=== PATIENT | female | born 2005 | race Caucasian/White ===

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

== ENCOUNTER → 2024-03-25 08:40 | Outpatient (REF) | payer BC, MEDICAID, SELFPAY ==
--- NOTE | 2024-03-25 | DI.RAD_ITS ---
Exam(s) XR CHEST 2V PA LATERAL EXAM: XR CHEST 2V PA LATERAL CLINICAL HISTORY: cough TECHNIQUE: 2D digital imaging was performed of the chest. Two images were obtained. PA and lateral views were obtained. COMPARISON: No exams were available for comparison FINDINGS: MEDIASTINUM: Normal. HEART: Normal. PULMONARY VASCULATURE: Normal. LUNGS: Clear. PLEURAL SPACE: No pleural effusion or pneumothorax. BONE:Within normal limits for the patient's age. OTHER FINDINGS:Normal. IMPRESSION: No acute pulmonary findings. DATA REPOSITORY: RADIATION DOSE DELIVERED:
== END ==
LOC: DI 08:40
PROVIDERS: PCP Family Medicine; Visit Provider Physician Assistant Medical
DX: R05.9 Cough, unspecified (principal)
CPT/HCPCS: 71046

== ENCOUNTER 2024-08-03 12:38 | Emergency (ER) | payer BC, MEDICAID, SELFPAY ==
[2024-08-03 13:29] VITALS: BP 131/80; PULSE 69; RESP 20; TEMP 37.1; O2SAT 96
--- NOTE | 2024-08-03 13:38 | ED.GENADUL_ITS ---
Discharge Plan Disposition Patient Disposition: Home Condition: Stable Discharge Details Clinical Impression: Abdominal pain of unknown cause Primary Care Provider: Stephan Rivera ED Provider: Mikie Pike Home Meds and New Rx's Prescriptions: Continued lisdexamfetamine [Vyvanse] 20 mg capsule 30 mg PO DAILY Kyleena 17.5 mcg/24 hrs (5 yrs) 19.5 mg intrauterine device 1 device IY ONCE Rx Instructions: as a single dose loratadine [Allergy Relief (loratadine)] 10 mg tablet 10 mg PO DAILY fluticasone propionate [Flovent HFA] 110 mcg/actuation HFA aerosol inhaler 1 puff inhalation BID Qty: 12 0RF albuterol sulfate [ProAir HFA] 90 mcg/actuation HFA aerosol inhaler 2 puff inhalation Q6H PRN Discharge Instructions Instructions: Abdominal Pain, Adult ED Additional Instructions: You were seen in the emergency department for your abdominal pain of unknown cause, there is no evidence of any gallbladder or pancreatitis problem there is no evidence of any kidney stone or kidney problem, no evidence of any ovarian cyst, your labs are benign showing no sign of infection, it would be highly unlikely to have any perforated organ or organ problem in the abdomen including appendicitis at this time-you may have irritable bowel syndrome or a stomach bug that is passing through you but I do not suspect any emergent pathology, please follow-up with your primary care provider please return to the emergency department for any emergent concerns including worsening with fever, bowel and urine changes, severe increase in pain. Referrals: Stephan Rivera [Primary Care Provider] - Discharge Data Discharge Date/Time-TO BE ENTERED AT DEPARTURE: 08/03/24 15:59 HPI General Date/Time Provider Initiated Documentation: 08/03/24 12:58 . HPI Narrative: 18 year-old female presents to ED today by POV/ambulating with a chief complaint of lower abdominal pain, intermittent with onset over a week ago. Patient concerned with diverticulitis vs ovarian cysts. Quality described as intermittent central lower abdominal pain, no radiation to bowel/urinary changes, black/bloody stools, vaginal complaints, vomiting, fever. Severity is described as 10/10, but at different points has no pain throughout visit. Palliating factors include nothing specific. Provoking factors include nothing specific. Patient had a negative covid test at urgent care. Patient not anticoagulated. Related Data Home Medications ?Medication ?Instructions ?Recorded ?Confirmed levonorgestrel 17.5 mcg/24 hr (up 1 device intrauterine ONCE 05/18/20 08/03/24 to 5 yrs) 19.5mg intrauterine device (Kyleena) loratadine 10 mg tablet (Allergy 10 mg PO DAILY 11/01/20 08/03/24 Relief (loratadine)) albuterol sulfate 90 mcg/actuation 2 puff inhalation Q6H PRN 10/18/21 08/03/24 aerosol inhaler (ProAir HFA) lisdexamfetamine 20 mg capsule 30 mg PO DAILY 08/28/22 08/03/24 (Vyvanse) fluticasone propionate 110 1 puff inhalation BID #12 grams 11/26/22 08/03/24 mcg/actuation HFA aerosol inhaler (Flovent HFA) Previous Rx's ?Medication ?Instructions ?Recorded fluticasone propionate 110 1 puff inhalation BID #12 grams 11/26/22 mcg/actuation HFA aerosol inhaler (Flovent HFA) Allergies Allergy/AdvReac Type Severity Reaction Status Date / Time No Known Allergies Allergy Unverified 08/03/24 13:34 General Stated Complaint: Abd Prob KAUR: 3 Review of Systems All systems reviewed & are unremarkable except as noted in HPI and below Exam Narrative Exam Narrative: GENERAL APPEARANCE: Well-nourished, non-toxic, awake and alert, atraumatic, no acute distress. SKIN: Warm, pink, dry, intact, without rashes/lesions/ulcerations. HEAD: Normocephalic, atraumatic, normal hair distribution for gender/age. EYES: Normal conjunctiva, no exudates on lids/lashes. ENT: Nares patent, no circumoral cyanosis, no facial swelling NECK: Supple, trachea midline, painless cervical ROM. LUNGS/CHEST: Lungs CTA bilaterally-no rhonchi/rales/wheezes diffusely, non- labored respirations, normal A/P diameter, symmetrical expansion, no chest wall deformity HEART (CV/PV): Regular rate and rhythm without murmur, no peripheral edema, no JVD. ABDOMEN: Soft, non-distended, no guarding, suprapubic discomfort with palpation, right upper quadrant tenderness without overt Cottrell sign, no CVA tenderness bilaterally, no Rovsing's, no McBurney's point tenderness. MSK: Normal ROM, no swelling/deformity to bilateral UEs or LEs, moving all extremities without weakness, no cyanosis, spine midline without tenderness, normal curvature. NEURO: Mental Status AAOx4 - alert to person, place, time, events No facial droop, no forehead involvement. Motor: No focal weakness - strength 5/5 in bilateral UEs and LEs, proximal and distal, symmetric. Sensory: sensation intact to light touch globally. Gait normal: patient ambulated without ataxia into ED room. PSYCH: euthymic, cooperative, pleasant, appropriate speech Course Vital Signs Vital signs: Vital Signs Temperature 37.1 C 08/03/24 13:29 Pulse 69 08/03/24 13:29 Respiratory Rate 20 08/03/24 13:29 Blood Pressure 131/80 08/03/24 13:29 Pulse Oximetry 96 08/03/24 13:29 Temperature 37.1 C 08/03/24 13:29 Pulse 69 08/03/24 13:29 Respiratory Rate 20 08/03/24 13:29 Respiratory Effort Normal 08/03/24 13:32 Blood Pressure 131/80 08/03/24 13:29 Pulse Oximetry 96 08/03/24 13:29 Oxygen Delivery Method Room Air 08/03/24 13:29 Oxygen Flow Rate 0 08/03/24 13:29 Pain Level 3 08/03/24 13:29 Medical Decision Making This dictation utilizes [id number] dictation software and may contain unedited grammatical errors. 18 year-old female presents to ED today by POV/ambulating with a chief complaint of lower abdominal pain, intermittent with onset over a week ago. Patient concerned with diverticulitis vs ovarian cysts. Quality described as intermittent central lower abdominal pain, no radiation to bowel/urinary changes, black/bloody stools, vaginal complaints, vomiting, fever. Severity is described as 10/10, but at different points has no pain throughout visit. Palliating factors include nothing specific. Provoking factors include nothing specific. Patient had a negative covid test at urgent care. Patients' medical history: Anxiety. Family and social history: Noncontributory. Pertinent exam findings / vital signs include lower abdominal tenderness, no tenderness at McBurney's point, states more focal in the right upper quadrant as well as suprapubic areas, no CVA tenderness bilaterally, stable vitals, nontoxic presentation, benign cardiopulmonary status, neuro intact. Differential / pathologies of concern include abdominal pain, ovarian cysts, biliary tree pathology, renal pathology, UTI, IBS, endometriosis. Diagnostic studies of: -CBC, CMP, lipase, UA, magnesium, lactate, ultrasound right upper q uadrant/renal/pelvic. -CBC is completely benign with no actionable abnormality whatsoever -Lactate negative do not suspect any septic pathology or perforated viscus, mesenteric ischemia -CMP is without actionable abnormality, normal kidney function, normal liver enzymes, no electrolyte abnormality -Lipase within normal limits -Magnesium within normal limits -UA without any signs of infection -Ultrasounds of the right upper quadrant and renal system showed no acute abnormality, pelvic ultrasound shows no ovarian pathology Interventions of: -1g PO Tylenol for pain. ED Course/Assessment/Plan: 18-year-old female presents with vague abdominal pain for the past week, has 0 laboratory abnormalities indicating this would unlikely be any infectious etiology at this time, no elevated lactate indicating no mesenteric ischemia, the area of her pain is right upper quadrant and suprapubic areas, ultrasound showed no gallstones, lipase is normal indicating no pancreatitis, kidney functions normal there is no evidence of ureteral stone on renal ultrasound and no evidence of ovarian cyst or tubo-ovarian abscess or other pathology on ultrasound of the pelvic area, she may need follow-up with gastroenterology versus [employer] for possible IBS versus endometriosis. Otherwise she appears to be a healthy 18-year-old female, she did request some pain medicine and was given Tylenol, I do not think she needs any opiate pain medication with benign workup. Findings not consistent with perforated viscus, tubo-ovarian abscess, infectious colitis, mesenteric ischemia, electrolyte abnormality, UTI or PID. Disposition of abdominal pain of unknown cause. Patient verbalized understanding of the plan and return to ED criteria and engaged in shared decision making. Medical Records Medical records reviewed: Yes I reviewed the patient's medical records. Imaging Data Radiologic Study: Attestation: I personally reviewed and interpreted this imaging study as follows: Imaging: Ultrasound Radiologist's impression: EXAM: US ABDOMEN RENAL CLINICAL HISTORY: RUQ renal U/S TECHNIQUE: Ultrasound abdomen performed using standard protocol. COMPARISON: No exams were available for comparison FINDINGS: ABDOMINAL AORTA AND IVC: Visualized portions normal caliber. PANCREAS: Normal where visualized. LIVER: Normal. Hepatopetal flow in the Portal Vein. The liver measures 15.6 cm long. No hepatic mass is present. GALLBLADDER: No evidence of cholelithiasis. No evidence of wall thickening. No pericholecystic fluid identified. BILIARY SYSTEM: Common bile duct measures < 7 mm. No intrahepatic biliary ductal dilation. COTTRELL'S SIGN: Negative. SPLEEN: Not enlarged. ASCITES: None seen. Renal size in cm: Right: 11.2. Left: 10.8. Echogenicity: Normal. Hydronephrosis: No. Cyst or mass: No. Nephrolithiasis: No. Other findings: None. Bladder:The bladder was not adequately prepped for this examination and thus incompletely distended. No gross abnormalities identified. Ureteral jets: Right: Not visualized on this examination. Left: Not visualized on this examination. Prevoid vol:72 cc Renal color flow: Symmetric and within normal limits. IMPRESSION: Normal sonographic appearance of the upper abdomen, kidneys and bladder. Radiologic Study #2: Attestation: I personally reviewed and interpreted this imaging study as follows: Imaging: Ultrasound Radiologist's impression: EXAM: US PELVIS CLINICAL HISTORY: ?ovarian cysts. TECHNIQUE: Transabdominal pelvic ultrasound was performed using standard protocol. COMPARISON: No exams were available for comparison FINDINGS: UTERUS: Position: Anteverted. Size: 7.5 long by 3.6 AP by 6.2 transverse cm Endometrium: 0.3 cm. Normal for patient's menstrual status. There is an IUD which is in good position. Myometrium: Unremarkable. Cervix: Unremarkable. OVARIES: Right: 1.8 x 1.8 x 0.9 cm Cyst or mass: No suspicious cystic or solid masses. Left: 2.2 x 2.1 x 1.2 cm Cyst or mass: No suspicious cystic or solid masses. DOPPLER: Color: Symmetric and uniform flow to both ovaries. CUL-DE-SAC: Free fluid: None. Other: None. IMPRESSION: 1. Normal-appearing uterus with endometrial stripe within normal limits. 2. The patient's IUD is in good position. 3. Unremarkable bilateral ovaries. Lab Data Lab results reviewed: Yes I reviewed the patient's lab results. Labs: Laboratory Tests Range/Units 08/03/24 08/03/24 13:40 15:00 WBC (4.4-10.8) 10^3/uL 8.02 RBC (3.93-5.22) 10^6/uL 4.88 Hgb (11.2-15.7) g/dL 13.6 Hct (36.0-46.0) % 41.2 MCV (80-95) fL 84 MCH (27.0-33.0) pg 27.9 MCHC (32.0-36.0) % 33.0 RDW (11.7-14.6) % 12.3 Plt Count (130-400) 10^3/uL 284 MPV (8.0-11.0) fL 8.8 Immature Gran % % 0.2 Neutrophils % % 63.6 Lymphocytes % % 22.1 Monocytes % % 6.7 Eosinophils % % 6.5 Basophils % % 0.9 Nucleated RBC % (0.0-0.3) % 0.0 Absolute Neutrophils (1.2-6.7) 10^3/uL 5.10 Absolute Lymphocytes (1.2-3.4) 10^3/uL 1.77 Absolute Monocytes (0.1-0.8) 10^3/uL 0.54 Absolute Eosinophils (0.0-0.7) 10^3/uL 0.52 Absolute Basophils (0.0-0.2) 10^3/uL 0.07 VBG Lactate (0.6-1.4) mmol/L 0.4 L Sodium (136-145) mmol/L 144 Potassium (3.5-5.1) mmol/L 3.8 Chloride (98-107) mmol/L 107 Carbon Dioxide (21.0-32.0) mmol/L 25.9 Anion Gap (3-11) mmol/L 11.1 H BUN (7-18) mg/dL 10 Creatinine (0.55-1.02) mg/dL 0.8 Est GFR (CKD-EPI 2020) (mL/min/1.73m2) 108.78 Glucose (74-106) mg/dL 90 Calcium (8.5-10.1) mg/dL 9.1 Magnesium (1.8-2.4) mg/dL 2.1 Total Bilirubin (0.2-1.0) mg/dL 0.56 AST (15-37) U/L 15 ALT (14-59) U/L 14 Alkaline Phosphatase (46-116) U/L 98 Total Protein (6.4-8.2) g/dL 7.7 Albumin (3.4-5.0) g/dL 4.5 Lipase (16-77) U/L 26 Urine Color (Yellow) Yellow Urine Clarity (Clear) Sl Cloudy Urine pH (5-8) 8.0 Ur Specific [place] (1.005-1.025) 1.020 Urine Protein (Neg-Trace) mg/dL Negative Urine Ketones (Negative) mg/dL Negative Urine Blood (Negative) Trace-intact H Urine Nitrite (Negative) Negative Urine Bilirubin (Negative) Negative Urine Urobilinogen (Up to 0.2) mg/dL 0.2 Ur Leukocyte Esterase (Negative) Negative Urine RBC (0-2) HPF 0-2 Urine WBC (0-5) HPF Negative Ur Epithelial Cells (Negative) HPF Many Urine Crystals (Negative) HPF Negative Urine Bacteria (Negative) HPF Negative Urine Casts (Negative) LPF Negative Urine Mucus (Negative) Negative Ur Culture Indicated? No Urine Glucose (Negative) mg/dL Negative Quality:SDOH Health Related Social Needs: No Data to Display PFSH All Active Problems (Updated 08/03/24 @ 15:32 by WILFRIDO Cunha) Abdominal pain of unknown cause (Acute) Synovitis of right shoulder (Acute) Instability of right shoulder joint (Acute) Pain of ulnar side of wrist (Acute) Left scapholunate ligament tear (Acute) Mood disorder (Acute) Asthma, moderate persistent (Acute) Left wrist sprain (Acute 09/30/20) IUD surveillance (Acute 04/06/20) Broderickena Suicidal ideation (Acute) Anxiety and depression (Acute) Medical History Anemia Anxiety Buckle fracture of left wrist Wheezing Family History Mother Asthma Father Essential hypertension Hyperlipidemia Mental disorder anxiety Sister Asthma eia Social History Smoking/Tobacco Use Status: Never Smoking risk assessment performed?: Yes Alcohol Intake: never Substance use type: does not use Current gender identity: female Do you feel safe at home: Yes Do you feel safe in your relationship?: Yes Female Reproductive History Menstrual Age of Menarche: 10 Duration of menses: 6-7 days control method: none and progestin IUCD History History 0 Para Hx # Term Pregnancies Multiple births Hx # Pregnancies Ectopic pregnancies AB induced Hx Number of Living Children AB spontaneous
[2024-08-03 14:06] LABS: Bilirubin Negative (Negative); Blood Trace-intact (Negative); Clarity Sl Cloudy (Clear); Glucose Negative (Negative); Ketones Negative (Negative); Leukocyte Esterase Negative (Negative); Nitrite Negative (Negative); Urobilinogen 0.2 mg/dL (Up to 0.2)
--- NOTE | 2024-08-03 14:20 | DI.US_ITS ---
Exam(s) US ABDOMEN RENAL EXAM: US ABDOMEN RENAL CLINICAL HISTORY: RUQ renal U/S TECHNIQUE: Ultrasound abdomen performed using standard protocol. COMPARISON: No exams were available for comparison FINDINGS: ABDOMINAL AORTA AND IVC: Visualized portions normal caliber. PANCREAS: Normal where visualized. LIVER: Normal. Hepatopetal flow in the Portal Vein. The liver measures 15.6 cm long. No hepatic mass is present. GALLBLADDER: No evidence of cholelithiasis. No evidence of wall thickening. No pericholecystic fluid identified. BILIARY SYSTEM: Common bile duct measures < 7 mm. No intrahepatic biliary ductal dilation. BOSTON'S SIGN: Negative. SPLEEN: Not enlarged. ASCITES: None seen. Renal size in cm: Right: 11.2. Left: 10.8. Echogenicity: Normal. Hydronephrosis: No. Cyst or mass: No. Nephrolithiasis: No. Other findings: None. Bladder:The bladder was not adequately prepped for this examination and thus incompletely distended. No gross abnormalities identified. Ureteral jets: Right: Not visualized on this examination. Left: Not visualized on this examination. Prevoid vol:72 cc Renal color flow: Symmetric and within normal limits. IMPRESSION: Normal sonographic appearance of the upper abdomen, kidneys and bladder. DATA REPOSITORY:
[2024-08-03 14:22] LABS: Bacteria Negative HPF (Negative); C & S Indicated? No; Casts Negative LPF (Negative); Crystals Negative HPF (Negative); Epithelial Cells Many HPF (Negative); Mucus Negative (Negative); RBC 0-2 HPF (0-2); WBC Negative HPF (0-5)
--- NOTE | 2024-08-03 14:45 | DI.US_ITS ---
Exam(s) US PELVIS EXAM: US PELVIS CLINICAL HISTORY: ?ovarian cysts. TECHNIQUE: Transabdominal pelvic ultrasound was performed using standard protocol. COMPARISON: No exams were available for comparison FINDINGS: UTERUS: Position: Anteverted. Size: 7.5 long by 3.6 AP by 6.2 transverse cm Endometrium: 0.3 cm. Normal for patient's menstrual status. There is an IUD which is in good position . Myometrium: Unremarkable. Cervix: Unremarkable. OVARIES: Right: 1.8 x 1.8 x 0.9 cm Cyst or mass: No suspicious cystic or solid masses. Left: 2.2 x 2.1 x 1.2 cm Cyst or mass: No suspicious cystic or solid masses. DOPPLER: Color: Symmetric and uniform flow to both ovaries. CUL-DE-SAC: Free fluid: None. Other: None. IMPRESSION: 1. Normal-appearing uterus with endometrial stripe within normal limits. 2. The patient's IUD is in good position. 3. Unremarkable bilateral ovaries. DATA REPOSITORY:
[2024-08-03 15:03] LABS: Lactate 0.4 mmol/L (0.6-1.4)
[2024-08-03 15:04] LABS: Abs Immature Grans 0.02 10^3/uL (0.0-0.06); Absolute Basophil Count 0.07 10^3/uL (0.0-0.2); Absolute Eosinophil Count 0.52 10^3/uL (0.0-0.7); Absolute Lymphocyte Count 1.77 10^3/uL (1.2-3.4); Absolute Monocyte Count 0.54 10^3/uL (0.1-0.8); Basophils % 0.9 %; Eosinophils % 6.5 %; HCT 41.2 % (36.0-46.0); HGB 13.6 g/dL (11.2-15.7); Immature Grans % 0.2 %; Lymphocytes % 22.1 %; MCH 27.9 pg (27.0-33.0); MCV 84 fL (80-95); MPV 8.8 fL (8.0-11.0); Monocytes % 6.7 %; Neutrophils % 63.6 %; Platelet Count 284 10^3/uL (130-400); RBC 4.88 10^6/uL (3.93-5.22); RDW 12.3 % (11.7-14.6); RDW-SD 37.2 fL; WBC 8.02 10^3/uL (4.4-10.8)
[2024-08-03 15:20] LABS: ALT 14 U/L (14-59); AST 15 U/L (15-37); Albumin 4.5 g/dL (3.4-5.0); Alkaline Phosphatase 98 U/L (46-116); Anion Gap 11.1 mmol/L (3-11); BUN 10 mg/dL (7-18); Bilirubin, Total 0.56 mg/dL (0.2-1.0); CO2 25.9 mmol/L (21.0-32.0); CREATININE 0.8 mg/dL (0.55-1.02); Calcium 9.1 mg/dL (8.5-10.1); Chloride 107 mmol/L (98-107); Estimated GFR 108.78 (mL/min/1.73m2); Glucose 90 mg/dL (74-106); Lipase 26 U/L (16-77); Magnesium 2.1 mg/dL (1.8-2.4); Potassium 3.8 mmol/L (3.5-5.1); Sodium 144 mmol/L (136-145); Total Protein 7.7 g/dL (6.4-8.2)
[2024-08-03] MEDS: Acetaminophen 500 MG TAB 1000 MG PO (15:36)
[2024-08-03 15:38] VITALS: BP 132/78; BP 145/85; PULSE 62; PULSE 64; RESP 16; TEMP 36.4; TEMP 36.5; O2SAT 100
[2024-08-03] MEDS: Ketorolac 15 MG/ML VIAL IVP (15:55)
== END 2024-08-03 15:59 | disposition home or self-care (01) ==
PROVIDERS: Emergency Medicine; Emergency Provider Physician Assistant; PCP Family Medicine
DX: R10.9 Unspecified abdominal pain (principal); Z97.5 Presence of (intrauterine) contraceptive device
CPT/HCPCS: 76770; 80053; 83690; 96374; 99284; 76700; 76856; 81003; 81015; 83605; 83735; 85025; J1885

== ENCOUNTER 2024-09-21 21:29 | Outpatient (REF) | payer BC, MEDICAID, SELFPAY | END 2024-09-21 21:30 | disposition home or self-care (01) | LOC: LBN 21:29 | PROVIDERS: PCP Family Medicine; Visit Provider Nurse Practitioner Family | DX: J02.9 Acute pharyngitis, unspecified (principal) | CPT/HCPCS: 87070 ==

== ENCOUNTER 2024-09-22 08:22 | Emergency (ER) | payer BC, MEDICAID, SELFPAY ==
[2024-09-22 08:24] VITALS: BP 133/91; PULSE 88; RESP 16; TEMP 36.6; O2SAT 98
[2024-09-22 08:25] VITALS: BP 133/91; PULSE 77
--- NOTE | 2024-09-22 08:52 | DI.CT_ITS ---
Exam(s) CT NECK W EXAM: CT NECK W INDICATION: Left tonsillar swelling. COMPARISON: CT CT HEAD CERVICAL SPINE WO from 06/13/2022 TECHNIQUE: FINDINGS: VISUALIZED PARANASAL SINUSES: There is mucosal thickening in the left maxillary sinus without a fluid level therein. Other visualized paranasal sinuses are clear as are mastoid air cells. NASOPHARYNX: Unremarkable ORODENTAL: Unremarkable. OROPHARYNX: Slightly prominent tonsils bilaterally. Subtle suggestion of small 5 mm abscess in the l eft tonsil. No calcified tonsilliths evident. No airway obstruction. Uvula is midline. No evidenc e of retropharyngeal abscess. HYPOPHARYNX: Unremarkable. Valleculae and epiglottis and aryepiglottic folds appear normal. VOCAL CORDS: Unremarkable. No masses evident. Subglottic airway appears unremarkable. THYROID GLAND: Unremarkable. Normal size and no obvious nodules. SALIVARY GLANDS: Unremarkable. No significant findings in the parotid and submandibular glands. LYMPH NODES: Multiple enhancing probable reactive lymph nodes posterior to the jugular veins both alyx es the neck. OTHER: No significant vascular findings. VISUALIZED LUNG APICES: No significant findings. IMPRESSION: 1. Mildly swollen tonsils. Possible subtle 5 mm abscess in the left tonsil. 2. No evidence of retropharyngeal abscess. Discussed with ER provider RADIATION DOSE DELIVERED: 182.94mGy.cm Total DLP DATA REPOSITORY: All CT scans at this facility are submitted to the National Radiology Data Registry (NRDR) Dose Index Registry (DIR) with the [employer] ([employer]). RADIATION OPTIMIZATION: All CT scans at this facility use at least one of these dose optimization te chniques: automated exposure control; mA and/or kV adjustment per patient size (includes targeted exa ms where dose is matched to clinical indication); or iterative reconstruction.
--- NOTE | 2024-09-22 08:53 | ED.GENADUL_ITS ---
Discharge Plan Disposition Patient Disposition: Home Discharge Details Clinical Impression: Acute tonsillitis, Elevated liver enzymes Primary Care Provider: David Landaverde ED Provider: Jethro Doll Home Meds and New Rx's Prescriptions: New ondansetron 4 mg tablet,disintegrating 4 mg PO Q8H PRN (Reason: nausea and vomiting) Qty: 10 0RF Continued lisdexamfetamine [Vyvanse] 20 mg capsule 30 mg PO DAILY Kyleena 17.5 mcg/24 hrs (5 yrs) 19.5 mg intrauterine device 1 device IY ONCE Rx Instructions: as a single dose loratadine [Allergy Relief (loratadine)] 10 mg tablet 10 mg PO DAILY PRN fluticasone propionate [Flovent HFA] 110 mcg/actuation HFA aerosol inhaler 1 puff inhalation BID Qty: 12 0RF albuterol sulfate [ProAir HFA] 90 mcg/actuation HFA aerosol inhaler 2 puff inhalation Q6H PRN amoxicillin-pot clavulanate 875-125 mg tablet 1 tab PO BID Patient Comments: vomited it up prednisone 20 mg tablet 20 mg PO Q12H PRN Patient Comments: Vomiting. lidocaine HCl 2 % solution 1 applic topical Q12H PRN Discharge Instructions Instructions: Peritonsillar Abscess, Adult Additional Instructions: Please take medication as prescribed and discussed and return to the emergency department for any new or significant worsening of symptoms such as any difficulty breathing, inability to swallow, or further concerns. I will recommend that you follow-up with primary care provider for reassessment later this week along with consideration of repeat labs given that you did have elevated liver function. If you have any significant worsening of your abdominal pain or cannot tolerate your antibiotics please return to the emergency department for reassessment Referrals: David Landaverde [Primary Care Provider] - 3 days Discharge Data Discharge Date/Time-TO BE ENTERED AT DEPARTURE: 09/22/24 11:59 HPI General Mode of arrival: ambulatory . Date/Time Provider Initiated Documentation: 09/22/24 08:23 . Limitations to Documentation: no limitations . Information obtained by: patient, family, RN notes reviewed and old records reviewed . History of Present Illness 18 year old F presents to the emergency department with the chief complaint of Sore throat, nausea vomiting diarrhea, described as moderate, Quality is described as aching, Patient started experiencing this week(s) (1) and it has been constant. No relieving factors improve symptom(s), No exacerbating factors reported . Patient notes cough, fever/chills and nausea/vomiting; denies rash. Patient did receive the following treatments prior to arrival, other (Prescribed antibiotics) Related Data Home Medications ?Medication ?Instructions ?Recorded ?Confirmed levonorgestrel 17.5 mcg/24 hr (up 1 device intrauterine ONCE 05/18/20 09/22/24 to 5 yrs) 19.5mg intrauterine device (Kyleena) loratadine 10 mg tablet (Allergy 10 mg PO DAILY PRN 11/01/20 09/22/24 Relief (loratadine)) albuterol sulfate 90 mcg/actuation 2 puff inhalation Q6H PRN 10/18/21 09/22/24 aerosol inhaler (ProAir HFA) lisdexamfetamine 20 mg capsule 30 mg PO DAILY 08/28/22 09/22/24 (Vyvanse) fluticasone propionate 110 1 puff inhalation BID #12 grams 11/26/22 09/22/24 mcg/actuation HFA aerosol inhaler (Flovent HFA) amoxicillin 875 mg-potassium 1 tab PO BID 09/22/24 09/22/24 clavulanate 125 mg tablet lidocaine HCl 2 % mucosal solution 1 applic topical Q12H PRN 09/22/24 09/22/24 ondansetron 4 mg disintegrating 4 mg PO Q8H PRN nausea and 09/22/24 tablet vomiting #10 tabs prednisone 20 mg tablet 20 mg PO Q12H PRN 09/22/24 09/22/24 Previous Rx's ?Medication ?Instructions ?Recorded fluticasone propionate 110 1 puff inhalation BID #12 grams 11/26/22 mcg/actuation HFA aerosol inhaler (Flovent HFA) ondansetron 4 mg disintegrating 4 mg PO Q8H PRN nausea and 09/22/24 tablet vomiting #10 tabs Allergies Allergy/AdvReac Type Severity Reaction Status Date / Time No Known Allergies Allergy Unverified 09/22/24 11:16 General Stated Complaint: Nausea/Vomit/Diar KAUR: 3 Review of Systems Constitutional Constitutional: Reports chills, Reports fever(s), Denies headache(s) and Reports malaise ENT Ears, Nose, Mouth, and Throat: Denies dysphagia, Denies otalgia, Denies headache(s), Reports hoarseness, Denies lip swelling, Denies mouth lesions, Reports nasal congestion, Reports odynophagia, Reports sore throat, Reports throat swelling and Denies tongue swelling Cardiovascular Cardiovascular: Denies chest pain Respiratory Respiratory: Denies chest congestion and Reports cough Gastrointestinal Gastrointestinal: Denies dysphagia and Reports odynophagia Neurologic Neurologic: Denies headache(s) Allergic/Immunologic Allergic/Immunologic: Denies lip swelling, Reports throat swelling and Denies to ngue swelling Exam Const General: cooperative, healthy appearing and no acute distress Orientation: alert, awake and oriented x3 HENAL Head: normal to inspection and normocephalic Ears: hearing grossly normal bilaterally, external ears normal, TM's normal bilaterally and mastoids normal General nose exam: external nose normal and nares normal Face and sinus: normal facial exam Mouth: oral mucosae normal, lip normal, tongue normal, no audible dysphonia, no drooling and no trismus Throat: posterior oropharynx normal, uvula midline, abnormal tonsil on the right hypertrophy 1+, on the left hypertrophy 2+ and bilaterally erythema and no peritonsillar masses Neck Neck: normal visual inspection, full ROM, no lymphadenopathy and no meningeal signs Resp Effort & Inspection: normal respiratory effort, able to speak in complete sente nces and no stridor Auscultation: clear to auscultation bilaterally Cardio Rate: regular rate Rhythm: regular rhythm Heart Sounds: S1 normal and S2 normal GI Palpation: soft, not firm, no guarding, not rigid and tender (Diffuse nonfocal) Auscultation: normal bowel sounds General: No CVA tenderness Skin General skin exam: no rashes or lesions noted Course Vital Signs Vital signs: Vital Signs Temperature 36.6 C 09/22/24 08:24 Pulse 88 09/22/24 08:24 Respiratory Rate 16 09/22/24 08:24 Blood Pressure 133/91 H 09/22/24 08:24 Pulse Oximetry 98 09/22/24 08:24 Temperature 36.6 C 09/22/24 08:24 Pulse 88 09/22/24 08:24 Respiratory Rate 16 09/22/24 08:24 Blood Pressure 133/91 H 09/22/24 08:24 Pulse Oximetry 98 09/22/24 08:24 Medical Decision Making Patient presenting to the emergency department for chief complaint of nausea vomiting diarrhea and sore throat. Patient reports that for approximately 1 week she has had cold-like symptoms including nasal congestion sore throat and cough. Over the last 48 hours she has noted some increase in her sore throat with more pain on the left side compared to the right side. She does state when attempting to have some NyQuil 2 days ago she started having some vomiting. This caused her to go to the urgent care yesterday and was swabbed for mono and strep with strep culture sent but POC was all negative. She was placed upon Augmentin and took first dose last night around 6 with worsening nausea vomiting diarrhea starting around 8 PM that is continued. She did hold her morning dose. Physical exam shows clear lung sounds, diffuse nonfocal abdominal pain with normal active bowel sounds, stable vital signs, normal cardiac exam, HEENT unremarkable except for tonsillary erythema and hypertrophy with worse on the left compared to the right no lymphadenopathy. Patient in stable condition. Given worsening symptoms after 2 weeks and unilateral swelling worse on the left side I am slightly concerned for peritonsillar abscess especially given that patient cannot tolerate Augmentin. Will perform labs, confirm negative , and test for COVID and flu. Will also perform CT imaging of neck with contrast. Pending results will give acetaminophen and dexamethasone to help with symptoms. Reviewed patient's labs and patient does have slight leukocytosis, significant transaminase and otherwise nondiagnostic labs. Pending CT imaging results did reassess patient and patient stated improvement of overall symptoms but still had some nausea. Will give patient Zofran. Discussed CT imaging with radiologist who states that there is a possible very small abscess in the left tonsil and some signs of sinusitis otherwise no other emergent findings. Slope is still considered even though negative test yesterday given likelihood of false negative but with radiologist reporting possible small abscess we will still treat with antibiotics. discussed these findings with patient and family and agreed upon plan of care of patient to receive 1 dose of IV antibiotics, continue Augmentin at home, consider continuing steroids depending on how patient feels tomorrow morning and close monitoring with return and follow-up precautions thoroughly discussed. Will also provide patient prescription for Zofran to help with nausea. Will recommend follow-up with primary care provider preferably later this week for reassessment along with consideration of repeat labs due to transaminase. Patient instructed not to norberto e acetaminophen but to continue using Advil or Motrin. After discussion of diagnosis and plan of care patient and family has no further needs, questions, or concerns and states clear understanding to return to the emergency department for any worsening symptoms. This documentation was generated using [employer] dictation system, please disregard any oddities of phrase or misspellings. Imaging Data Radiologic Study: Attestation: I personally reviewed and interpreted this imaging study as follows: Imaging: CT Scan Radiologist's impression: Exam(s) CT NECK W EXAM: CT NECK W INDICATION: Left tonsillar swelling. COMPARISON: CT CT HEAD CERVICAL SPINE WO from 06/13/2022 TECHNIQUE: FINDINGS: VISUALIZED PARANASAL SINUSES: There is mucosal thickening in the left maxillary sinus without a fluid level therein. Other visualized paranasal sinuses are clear as are mastoid air cells. NASOPHARYNX: Unremarkable ORODENTAL: Unremarkable. OROPHARYNX: Slightly prominent tonsils bilaterally. Subtle suggestion of small 5 mm abscess in the left tonsil. No calcified tonsilliths evident. No airway obstruction. Uvula is midline. No evidence of retropharyngeal abscess. HYPOPHARYNX: Unremarkable. Valleculae and epiglottis and aryepiglottic folds appear normal. VOCAL CORDS: Unremarkable. No masses evident. Subglottic airway appears unremarkable. THYROID GLAND: Unremarkable. Normal size and no obvious nodules. SALIVARY GLANDS: Unremarkable. No significant findings in the parotid and submandibular glands. LYMPH NODES: Multiple enhancing probable reactive lymph nodes posterior to the jugular veins both sides the neck. OTHER: No significant vascular findings. VISUALIZED LUNG APICES: No significant findings. IMPRESSION: 1. Mildly swollen tonsils. Possible subtle 5 mm abscess in the left tonsil. 2. No evidence of retropharyngeal abscess. Discussed with ER provider Quality:SDOH Health Related Social Needs: No Data to Display PFSH All Active Problems (Updated 09/22/24 @ 10:56 by Jethro Doll NP) Elevated liver enzymes (Acute) Acute tonsillitis (Acute) Synovitis of right shoulder (Acute) Instability of right shoulder joint (Acute) Pain of ulnar side of wrist (Acute) Left scapholunate ligament tear (Acute) Mood disorder (Acute) Asthma, moderate persistent (Acute) Left wrist sprain (Acute 09/30/20) IUD surveillance (Acute 04/06/20) Kyleena Suicidal ideation (Acute) Anxiety and depression (Acute) Medical History Anemia Buckle fracture of left wrist Wheezing Anxiety Family History Mother Asthma Father Essential hypertension Hyperlipidemia Mental disorder anxiety Sister Asthma eia Social History Smoking/Tobacco Use Status: Never Smoking risk assessment performed?: Yes Alcohol Intake: never Substance use type: does not use Current gender identity: female Do you feel safe at home: Yes Do you feel safe in your relationship?: Yes Female Reproductive History Menstrual Age of Menarche: 10 Duration of menses: 6-7 days control method: none and progestin IUCD History History 0 Para Hx # Term Pregnancies Multiple births Hx # Pregnancies Ectopic pregnancies AB induced Hx Number of Living Children AB spontaneous
[2024-09-22 09:08] LABS: Abs Immature Grans 0.08 10^3/uL (0.0-0.06); HCT 43.2 % (36.0-46.0); HGB 14.2 g/dL (11.2-15.7); MCH 26.9 pg (27.0-33.0); MCHC 32.9 % (32.0-36.0); MCV 82 fL (80-95); MPV 9.1 fL (8.0-11.0); Platelet Count 172 10^3/uL (130-400); RBC 5.28 10^6/uL (3.93-5.22); RDW 12.8 % (11.7-14.6)
[2024-09-22] MEDS: ACETAMINOPHEN 1,000 MG/100 ML BAG 400 MG IVPB (09:15)
[2024-09-22] MEDS: Dexamethasone 10 MG/ML VIAL IVP (09:15)
[2024-09-22 09:23] LABS: ALT 672 U/L (14-59); AST 367 U/L (15-37); Albumin 3.7 g/dL (3.4-5.0); Alkaline Phosphatase 580 U/L (46-116); Anion Gap 13.6 mmol/L (3-11); BUN 7 mg/dL (7-18); Bilirubin, Total 1.34 mg/dL (0.2-1.0); CO2 25.4 mmol/L (21.0-32.0); CREATININE 0.8 mg/dL (0.55-1.02); Chloride 100 mmol/L (98-107); Estimated GFR 108.78 (mL/min/1.73m2); Glucose 88 mg/dL (74-106); Potassium 3.4 mmol/L (3.5-5.1); Sodium 139 mmol/L (136-145); Total Protein 7.6 g/dL (6.4-8.2)
[2024-09-22 09:28] LABS: Absolute Lymphocyte Count 6.38 10^3/uL (1.2-3.4); Absolute Monocyte Count 0.45 10^3/uL (0.1-0.8); Absolute Neutrophil Count 4.37 10^3/uL (1.2-6.7); Atypical Lymphocytes % 2 %; Bands % 0 %; Diff Comment Manual Differential; Metamyelocytes % 0; Myelocytes % 0; Other Cells % 0; Promyelocytes % 0
[2024-09-22] MEDS: Omnipaque 350 MG/ML 100 ML BTL IJ (09:28)
[2024-09-22] MEDS: Normal Saline - Diluent 50 ML VIAL IJ (09:30)
[2024-09-22 09:53] VITALS: BP 112/63; PULSE 71
[2024-09-22] MEDS: Ondansetron 4 MG/2 ML VIAL IVP (10:37)
[2024-09-22] MEDS: AMPICILLIN/SULBACTAM 3 GM in Normal Saline 100 ML IVPB (11:12)
[2024-09-22 11:24] VITALS: BP 125/68; PULSE 72; RESP 18; O2SAT 95
[2024-09-22 11:58] VITALS: BP 128/62; PULSE 79; RESP 16; TEMP 36.9; O2SAT 98
== END 2024-09-22 11:59 | disposition home or self-care (01) ==
PROVIDERS: Emergency Provider Nurse Practitioner Family; PCP Student in an Organized Health Care Education/Training Program
DX: J03.90 Acute tonsillitis, unspecified (principal); R79.89 Other specified abnormal findings of blood chemistry
CPT/HCPCS: 70491; 80053; 81025; 87426; 96365; 96375; 99285; 85025; J0131; J0295; J1100; J2405; J3490

== ENCOUNTER 2024-11-24 15:02 | Outpatient (REF) | payer BC, MEDICAID, SELFPAY ==
[2024-11-24 14:39] LABS: Abs Immature Grans 0.03 10^3/uL (0.0-0.06); Absolute Eosinophil Count 0.66 10^3/uL (0.0-0.7); Absolute Lymphocyte Count 1.73 10^3/uL (1.2-3.4); Absolute Monocyte Count 0.49 10^3/uL (0.1-0.8); Absolute Neutrophil Count 4.87 10^3/uL (1.2-6.7); Basophils % 1.3 %; Eosinophils % 8.4 %; HCT 43.5 % (36.0-46.0); Immature Grans % 0.4 %; MCH 27.2 pg (27.0-33.0); MCHC 32.2 % (32.0-36.0); MCV 85 fL (80-95); MPV 9.2 fL (8.0-11.0); Monocytes % 6.2 %; Neutrophils % 61.7 %; Platelet Count 341 10^3/uL (130-400); RBC 5.14 10^6/uL (3.93-5.22); RDW-SD 40.3 fL; WBC 7.88 10^3/uL (4.4-10.8)
[2024-11-24 15:06] LABS: Anion Gap 7.6 mmol/L (3-11); BUN 7 mg/dL (7-18); CO2 28.4 mmol/L (21.0-32.0); CREATININE 0.7 mg/dL (0.55-1.02); Calcium 9.5 mg/dL (8.5-10.1); Chloride 107 mmol/L (98-107); Estimated GFR 127.69 (mL/min/1.73m2); Glucose 87 mg/dL (74-106); Potassium 4.7 mmol/L (3.5-5.1); Sodium 143 mmol/L (136-145); TSH (W/Ref FT4) 1.77 uIU/mL (0.52-4.13)
== END 2024-11-24 15:03 | disposition home or self-care (01) ==
LOC: LBN 15:02
PROVIDERS: PCP Student in an Organized Health Care Education/Training Program; Visit Provider Nurse Practitioner Family
DX: R00.2 Palpitations (principal)
CPT/HCPCS: 80048; 84443; 85025

== ENCOUNTER 2025-04-07 08:48 | Outpatient (REF) | payer BC, SELFPAY ==
[2025-04-08 11:36] LABS: Chlamydia Result Negative (Negative); GC Result Negative (Negative)
== END 2025-04-07 08:49 | disposition home or self-care (01) ==
LOC: LBN 08:48
PROVIDERS: PCP Student in an Organized Health Care Education/Training Program; Visit Provider Nurse Practitioner Women's Health
DX: Z30.431 Encounter for routine checking of intrauterine contraceptive device (principal)
CPT/HCPCS: 87491; 87591

== ENCOUNTER 2025-07-24 10:19 | Emergency (ER) | payer BC, SELFPAY ==
[2025-07-24 10:31] VITALS: BP 136/83; PULSE 84; RESP 20; TEMP 36.7; O2SAT 98
[2025-07-24] MEDS: Ibuprofen 600 MG TAB PO (11:06)
[2025-07-24] MEDS: Acetaminophen 500 MG TAB 1000 MG PO (11:06)
--- NOTE | 2025-07-24 11:22 | W.ED.GENAD ---
Discharge Plan Disposition Patient Disposition: Home Condition: Stable Discharge Details Clinical Impression: Contusion of heel, Bronchitis Primary Care Provider: David Landaverde ED Provider: Radha Wen Home Meds and New Rx's Prescriptions: New azithromycin 250 mg tablet 250 mg PO DAILY 4 Days Qty: 4 0RF Rx Instructions: start on day 2 of therapy No Action lisdexamfetamine [Vyvanse] 20 mg capsule 30 mg PO DAILY hydroxyzine HCl 10 mg tablet 10 mg PO DAILY PRN Kyleena 17.5 mcg/24 hrs (5 yrs) 19.5 mg intrauterine device 1 device IY ONCE Rx Instructions: as a single dose loratadine [Allergy Relief (loratadine)] 10 mg tablet 10 mg PO DAILY PRN fluticasone propionate [Flovent HFA] 110 mcg/actuation HFA aerosol inhaler 1 puff inhalation BID Qty: 12 0RF albuterol sulfate [ProAir HFA] 90 mcg/actuation HFA aerosol inhaler 2 puff inhalation Q6H PRN prednisone 20 mg tablet 20 mg PO Q12H PRN Patient Comments: Vomiting. lidocaine HCl 2 % solution 1 applic topical Q12H PRN ondansetron 4 mg tablet,disintegrating 4 mg PO Q8H PRN (Reason: nausea and vomiting) Qty: 10 0RF Discharge Instructions Instructions: Acute bronchitis, Minor Contusion ED Additional Instructions: You were seen in the emergency department today for evaluation of an injury to your heel. In our department had a full physical examination performed, and had an x-ray that was concerning for a hairline fracture. 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 I did provide you with a walking boot for comfort. Your x-ray of your chest did show evidence of bronchitis and you were started on azithromycin. Please take all of this medication until it is gone, even if you start to feel better. Please continue to use your inhalers. Please follow-up with your primary care provider in the next few days to discuss this visit and any symptoms that change, worsen, or persist. Thank you for allowing us to be part of your care. Discharge Data Discharge Date/Time-TO BE ENTERED AT DEPARTURE: 07/24/25 13:14 HPI General Mode of arrival: ambulatory. Date/Time Provider Initiated Documentation: 07/24/25 10:38. Limitations to Documentation: no limitations. Information obtained by: patient, family and old records reviewed. HPI Narrative: This is a 19-year-old female patient presenting for evaluation of a right foot injury. The patient reports that she was being impatient, did not want to wait for her father to finish walking down the stairs and so she jumped from about 6 feet up, landing flat on her feet. She immediately sustained pain on the bottom of her right foot in the region of the heel. She did not fall over or injure any other part of her body, was able to bear weight but it was painful, states that she has not taken any medications. This injury occurred at 6 AM. The patient denies back pain, numbness or tingling, has no personal history of injury to the affected right ankle and foot. Incidentally, the patient and her caregiver note that she has had a 2-week history of symptoms including nasal congestion, shortness of breath and cough, and chest discomfort which are consistent with historical episodes of bronchitis. She has a history of moderate persistent asthma, has been taking her inhalers as prescribed, which include an inhaled corticosteroid. She reports that her discomfort at this time is controlled, but given the duration of symptoms was interested in ongoing workup. She was seen last week and had a negative COVID and influenza test. Related Data Home Medications Medication Instructions Recorded Confirmed levonorgestrel 17.5 mcg/24 hr (up 1 device intrauterine ONCE 05/18/20 07/24/25 to 5 yrs) 19.5mg intrauterine device (Kyleena) loratadine 10 mg tablet (Allergy 10 mg PO DAILY PRN 11/01/20 07/24/25 Relief (loratadine)) albuterol sulfate 90 mcg/actuation 2 puff inhalation Q6H PRN 10/18/21 07/24/25 aerosol inhaler (ProAir HFA) lisdexamfetamine 20 mg capsule 30 mg PO DAILY 08/28/22 07/24/25 (Vyvanse) fluticasone propionate 110 1 puff inhalation BID #12 grams 11/26/22 07/24/25 mcg/actuation HFA aerosol inhaler (Flovent HFA) lidocaine HCl 2 % mucosal solution 1 applic topical Q12H PRN 09/22/24 07/24/25 ondansetron 4 mg disintegrating 4 mg PO Q8H PRN nausea and 09/22/24 07/24/25 tablet vomiting #10 tabs prednisone 20 mg tablet 20 mg PO Q12H PRN 09/22/24 07/24/25 hydroxyzine HCl 10 mg tablet 10 mg PO DAILY PRN 04/07/25 07/24/25 azithromycin 250 mg tablet 250 mg PO DAILY 4 days #4 tabs 07/24/25 Previous Rx's Medication Instructions Recorded fluticasone propionate 110 1 puff inhalation BID #12 grams 11/26/22 mcg/actuation HFA aerosol inhaler (Flovent HFA) ondansetron 4 mg disintegrating 4 mg PO Q8H PRN nausea and 09/22/24 tablet vomiting #10 tabs azithromycin 250 mg tablet 250 mg PO DAILY 4 days #4 tabs 07/24/25 Allergies Allergy/AdvReac Type Severity Reaction Status Date / Time No Known Allergies Allergy Verified 07/24/25 10:34 General Stated Complaint: Orthopedic KAUR: 4 Exam Narrative Exam Narrative: Gen: Awake and alert, in no apparent distress HEENT: Non-icteric sclera Neck: Supple Lungs: No apparent respiratory distress, normal respiratory effort. Lung sounds clear and equal without wheezing, rhonchi, rales CV: Appears well perfused, heart with regular rate and rhythm, chest wall is nontender and there is no reproduction of chest discomfort with deep breath Abdomen: Non-distended MSK: Moves 4 extremities without apparent limitation in ROM. No peripheral edema, no unilateral calf swelling or tenderness. The patient has no tenderness to the affected right hip, knee, or proximal fibular region. She has no tenderness nor step-offs of the L-spine. There is tenderness to palpation overlying the midfoot laterally on the right side close to the heel, tenderness to palpation at the insertion point of the Achilles tendon on the right heel, with no defects palpable to the Achilles tendon. Granados test with preserved dorsiflexion of the foot reassuring against full thickness rupture. No overlying skin changes, no pain with stressing of the syndesmosis, some tenderness to palpation of the lateral malleolus, no deformity or swelling Skin: Visualized skin without rashes, cyanosis. Neuro: Antalgic gait, no obvious focal deficits or facial asymmetry. Speaks in full, clear sentences. Psych: Appropriate for situation. Course Vital Signs Vital signs: Vital Signs Temperature 36.7 C 07/24/25 10:31 Pulse 84 07/24/25 10:31 Respiratory Rate 20 07/24/25 10:31 Blood Pressure 136/83 07/24/25 10:31 Pulse Oximetry 98 07/24/25 10:31 Temperature 36.7 C 07/24/25 10:31 Pulse 84 07/24/25 10:31 Respiratory Rate 20 07/24/25 10:31 Blood Pressure 136/83 07/24/25 10:31 Blood Pressure Position Sitting 07/24/25 10:31 Pulse Oximetry 98 07/24/25 10:31 Oxygen Delivery Method Room Air 07/24/25 10:31 Oxygen Flow Rate 0 07/24/25 10:31 Medical Decision Making This is a 19-year-old female patient presenting for evaluation after jumping approximately 6 feet and landing on her feet. Differential includes but is not limited to fracture, specifically calcaneal, foot, ankle, lumbar spine considered but less likely in the absence of pain. Considered sprain/strain, dislocation, contusion. No evidence of Achilles tendon rupture. Also considered URI, bronchitis, pneumonia. No evidence of reactive airway disease exacerbation at this time in this patient with no hypoxia or wheezing. The patient denies suicidal intention with her jump, and does not have a an associated psychiatric disturbance at this time. We will obtain an x-ray of the chest, right ankle and right foot. Will provide the patient with Tylenol and ibuprofen for management of pain. - Chest x-ray shows evidence of bronchitis, for which the patient received her first dose of azithromycin. I reviewed the x-ray imaging for the foot and ankle and discussed the results with the [facility]'s radiologist. They question a lucency in the superior aspect of the right calcaneus concerning for fracture. For this reason I did obtain a CT of the right heel as well as the lumbar spine. Lumbar spine without evidence of acute fracture, and the CT of the ankle actually reveals a well-corticated lucency more consistent with a cyst. Per this radiology report it does not have the appearance of a fracture. I shared these findings with the patient and did place her in a tall walking boot and recommended protected weightbearing. She will follow-up with her PCP to discuss this visit and any ongoing symptoms, and may require repeat imaging if she has symptoms that do not improve as expected. The remainder of her course of azithromycin was sent to her pharmacy for her bronchitis. At this time, the patient has had a full medical evaluation and is safe for discharge to home. They are hemodynamically stable, ambulatory, and tolerating PO. They are understanding of the follow-up plan and return precautions. They left our facility without incident. Radha Wen MD [facility] All Active Problems (Updated 07/24/25 @ 12:50 by Radha Wen MD) Bronchitis (Acute) Contusion of heel (Acute) Synovitis of right shoulder (Acute) Instability of right shoulder joint (Acute) Pain of ulnar side of wrist (Acute) Left scapholunate ligament tear (Acute) Mood disorder (Acute) Asthma, moderate persistent (Acute) Left wrist sprain (Acute 09/30/20) IUD surveillance (Acute 04/07/25) Kyleena Suicidal ideation (Acute) Anxiety and depression (Acute) Medical History (Updated 07/24/25 @ 12:50 by Radha Wen MD) Anemia Buckle fracture of left wrist Wheezing Anxiety Family History Mother Asthma Father Essential hypertension Hyperlipidemia Mental disorder anxiety Sister Asthma eia Social History Smoking/Tobacco Use Status: Current every day Tobacco Type: e-cigarettes Smoking risk assessment performed?: Yes Alcohol Intake: never Drug use: Occasionally Substance use type: does not use and marijuana Current gender identity: female Do you feel safe at home: Yes Do you feel safe in your relationship?: Yes Female Reproductive History Menstrual Age of Menarche: 10 Duration of menses: 6-7 days control method: progestin IUCD History History 0 Para Hx # Term Pregnancies Multiple births Hx # Pregnancies Ectopic pregnancies AB induced Hx Number of Living Children AB spontaneous
--- NOTE | 2025-07-24 11:24 | DI.RAD_ITS ---
Exam(s) XR ANKLE RT COMPLETE EXAM: XR ANKLE RT COMPLETE CLINICAL HISTORY: jumped from 6 ft height, posterior ankle pain. TECHNIQUE: 2D digital imaging was performed. COMPARISON: No exams were available for comparison FINDINGS: 3 views No evidence of fracture or widening the ankle mortise. Talar dome unremarkable. Tibiotalar and subtalar joints appear unremarkable. Small os trigonum is noted. Bone density normal. No osseous lesions. IMPRESSION: No acute osseous findings in the ankle. DATA REPOSITORY: RADIATION DOSE DELIVERED:
--- NOTE | 2025-07-24 11:25 | DI.RAD_ITS ---
Exam(s) XR CHEST 2V PA LATERAL EXAM: XR CHEST 2V PA LATERAL CLINICAL HISTORY: hx bronchitis, 2 weeks URI symptoms. TECHNIQUE: 2D digital imaging was performed. COMPARISON: CR,XR XR CHEST 2V PA LATERAL from 03/25/2024 FINDINGS: 2 views: Heart size is normal. The mediastinum is not widened. Lungs are clear. No infiltrates nor pleural effusions. IMPRESSION: No acute pulmonary findings.No significant change compared to 03/25/2024. DATA REPOSITORY: RADIATION DOSE DELIVERED:
--- NOTE | 2025-07-24 11:25 | DI.RAD_ITS ---
Exam(s) XR FOOT RT COMPLETE EXAM: XR FOOT RT COMPLETE CLINICAL HISTORY: heel and midfoot pain, jumped 6 ft landed on feet. TECHNIQUE: 2D digital imaging was performed. COMPARISON: No exams were available for comparison FINDINGS: 3 views No evidence of fracture or diastasis of the Lisfranc joint. No pes planus. No degenerative changes in the articulations of the foot. No radiopaque foreign bodies. No osseous lesions IMPRESSION: No significant radiographic findings in the foot. DATA REPOSITORY: RADIATION DOSE DELIVERED:
--- NOTE | 2025-07-24 11:28 | DI.VRAD_ITS ---
Addendum created by Tali Lucia MD on 07/24/2025 11:32:44 AM EDT: THIS REPORT CONTAINS FINDINGS THAT MAY BE CRITICAL TO PATIENT CARE. The findings were verbally communicated via telephone conference with Radha Wen at 11:32 AM EDT on 07/24/2025. The findings were acknowledged and understood. Addendum created by Tali Lucia MD on 07/24/2025 11:29:55 AM EDT: Addendum:Correction: Lucency through the superior aspect of the calcaneus may represent nondisplaced fracture. Initial report created on 07/24/2025 11:28:28 AM EDT: PROCEDURE INFORMATION: Exam: XR Right Foot Exam date and time: 07/24/2025 11:22 AM Age: 19 years old Clinical indication: Foot; Right; Jumped from 6 ft height, posterior ankle pain TECHNIQUE: Imaging protocol: Radiologic exam of the right foot. Views: 3 or more views. COMPARISON: No relevant prior studies available. FINDINGS: Bones/joints: There is no evidence of acute fracture.There is no evidence of malalignment or dislocation. Soft tissues: Normal. IMPRESSION: There is no evidence of acute fracture.There is no evidence of malalignment or dislocation. Dictated and Authenticated by: Tali Lucia MD. Order[facility] Garcia MD
--- NOTE | 2025-07-24 11:28 | DI.VRAD_ITS ---
PROCEDURE INFORMATION: Exam: XR Chest Exam date and time: 07/24/2025 11:18 AM Age: 19 years old Clinical indication: Other: HX bronchitis, 2 weeks uri symptoms TECHNIQUE: Imaging protocol: Radiologic exam of the chest. Views: 2 views. COMPARISON: CR XR CHEST 2V PA LATERAL 03/25/2024 5:47 PM FINDINGS: Lungs: Bronchial wall thickening in the right hilum may represent inflammation of the bronchus.. Pleural spaces: Unremarkable. No pleural effusion. No pneumothorax. Heart/Mediastinum: Unremarkable. No cardiomegaly. Bones/joints: Unremarkable. IMPRESSION: Bronchial wall thickening in the right hilum may represent inflammation of the bronchus.. Dictated and Authenticated by: Tali Lucia MD. Orderin [facility] Garcia MD
--- NOTE | 2025-07-24 11:28 | DI.VRAD_ITS ---
Addendum created by Tali Lucia MD on 07/24/2025 11:33:12 AM EDT: THIS REPORT CONTAINS FINDINGS THAT MAY BE CRITICAL TO PATIENT CARE. The findings were verbally communicated via telephone conference with Radha Wen at 11:33 AM EDT on 07/24/2025. The findings were acknowledged and understood. Addendum created by Tali Lucia MD on 07/24/2025 11:31:32 AM EDT: Correction: Lucency through the superior aspect of the calcaneus may represent nondisplaced fracture. Initial report created on 07/24/2025 11:28:00 AM EDT: PROCEDURE INFORMATION: Exam: XR Right Ankle Exam date and time: 07/24/2025 11:23 AM Age: 19 years old Clinical indication: Right; Jumped from 6 ft height, posterior ankle pain TECHNIQUE: Imaging protocol: Radiologic exam of the right ankle. Views: 3 or more views. COMPARISON: CR XR FOOT RT COMPLETE 07/24/2025 11:22 AM FINDINGS: Bones/joints: There is no evidence of acute fracture.There is no evidence of malalignment or dislocation. Soft tissues: Normal. IMPRESSION: There is no evidence of acute fracture.There is no evidence of malalignment or dislocation. Dictated and Authenticated by: Tali Lucia MD. Order[facility] Garcia MD
[2025-07-24] MEDS: Azithromycin 250 MG TAB 500 MG PO (12:09)
--- NOTE | 2025-07-24 12:22 | DI.CT_ITS ---
Exam(s) CT LUMBAR SPINE WO EXAM: CT LUMBAR SPINE WO CLINICAL HISTORY: calcaneal fx, eval compression fx. TECHNIQUE: Imaging Protocol: Axial computed tomography images with coronal and sagittal reformatted images were created and reviewed COMPARISON: No exams were available for comparison FINDINGS: Bones: There are no compression nor wedge fractures, listhesis, nor pars defects. There are no significant osseous lesions evident. No disc space narrowing. No obvious disc herniations. No central spinal canal stenosis. No foraminal stenosis. No facet arthropathy nor facet joint malalignment. Bone density normal. No osseous lesions. The visualized sacroiliac joints and sacrum appear unremarkable. PARASPINAL SOFT TISSUES: Visualized paraspinal tissues appear unremarkable. No evidence of paraspinal hematoma. IMPRESSION: 1. No significant findings this CT scan of the lumbosacral spine. 2. No evidence of fracture or listhesis. RADIATION DOSE DELIVERED: 355.3mGy.cm Total DLP DATA REPOSITORY: All CT scans at this facility are submitted to the National Radiology Data Registry (NRDR) Dose Index Registry (DIR) with the [employer] ([employer]). RADIATION OPTIMIZATION: All CT scans at this facility use at least one of these dose optimization techniques: automated exposure control; mA and/or kV adjustment per patient size (includes targeted exams where dose is matched to clinical indication); or iterative reconstruction.
--- NOTE | 2025-07-24 12:22 | DI.CT_ITS ---
Exam(s) CT LOWER EXTREMITY RT WO EXAM: CT LOWER EXTREMITY RT WO CLINICAL HISTORY: c/f non-displaced calcaneal fracture. TECHNIQUE: Imaging Protocol: Axial computed tomography images with coronal and sagittal reformatted images were created and reviewed. CONTRAST MATERIAL: Intravenous: None COMPARISON: CR,XR XR ANKLE RT COMPLETE from 07/24/2025 FINDINGS: OSSEOUS: No evidence of in the ankle and foot down to the head of the metatarsals. Small os trigonum is noted. Talar dome appears unremarkable. No evidence of osseous tarsal coalition. SOFT TISSUES: There is no prominent soft tissue swelling. No evidence of gas in the soft tissues and no evidence of radiopaque foreign bodies. IMPRESSION: No significant osseous findings in the right ankle. No evidence of calcaneal fracture, as per request. RADIATION DOSE DELIVERED: 91.34mGy.cm Total DLP DATA REPOSITORY: All CT scans at this facility are submitted to the National Radiology Data Registry (NRDR) Dose Index Registry (DIR) with the [employer] (ACR). RADIATION OPTIMIZATION: All CT scans at this facility use at least one of these dose optimization techniques: automated exposure control; mA and/or kV adjustment per patient size (includes targeted exams where dose is matched to clinical indication); or iterative reconstruction.
--- NOTE | 2025-07-24 12:30 | DI.VRAD_ITS ---
PROCEDURE INFORMATION: Exam: CT Right Lower Extremity Without Contrast, Ankle Exam date and time: 07/24/2025 11:51 AM Age: 19 years old Clinical indication: Injury or trauma; Fall; Other: C/f non-displaced calcaneal fracture; Injury date: TECHNIQUE: Imaging protocol: CT of the right lower extremity without contrast was performed. Exam focused on the ankle. Radiation optimization: All CT scans at this facility use at least one of these dose optimization techniques: automated exposure control; mA and/or kV adjustment per patient size (includes targeted exams where dose is matched to clinical indication); or iterative reconstruction. COMPARISON: XR ANKLE RT COMPLETE 07/24/2025 11:23 AM FINDINGS: Bones/joints: Well corticated lucency in the superior aspect of the calcaneus series 7, image 69 -71 may represent a chronic well corticated cyst. It measures 23 x 1.7 mm. This does not have the appearance of acute fracture. Soft tissues: Normal. IMPRESSION: Well corticated lucency in the superior aspect of the calcaneus series 7, image 69 -71. It measures 23 x 1.7 mm. This may represent a chronic well corticated cyst. This does not have the appearance of acute fracture. Dictated and Authenticated by: Tali Lucia MD. Order[facility] Garcia MD
--- NOTE | 2025-07-24 12:31 | DI.VRAD_ITS ---
PROCEDURE INFORMATION: Exam: CT Lumbar Spine Without Contrast Exam date and time: 07/24/2025 11:58 AM Age: 19 years old Clinical indication: Injury or trauma; Fall; Other: Calcaneal FX, eval compression FX TECHNIQUE: Imaging protocol: Computed tomography of the lumbar spine without contrast. Radiation optimization: All CT scans at this facility use at least one of these dose optimization techniques: automated exposure control; mA and/or kV adjustment per patient size (includes targeted exams where dose is matched to clinical indication); or iterative reconstruction. COMPARISON: US PELVIS TRANSVAGINAL 07/22/2025 8:32 AM FINDINGS: Bones/joints: There is no evidence of acute fracture.There is no evidence of malalignment or dislocation. Soft tissues: Unremarkable. IMPRESSION: There is no evidence of acute fracture.There is no evidence of malalignment or dislocation. Dictated and Authenticated by: Tali Lucia MD. Orderin [facility] Garcia MD
== END 2025-07-24 13:14 | disposition home or self-care (01) ==
PROVIDERS: Emergency Provider Emergency Medicine; PCP Student in an Organized Health Care Education/Training Program
DX: S90.31XA Contusion of right foot, initial encounter (principal); J40 Bronchitis, not specified as acute or chronic; Y30.XXXA Falling, jumping or pushed from a high place, undetermined intent, initial encounter
CPT/HCPCS: 99284 ×2; 29515; 71046; 72131; 73610; 73630; 73700